=== PATIENT | female | born 1970 | race African-American/Black ===

== ENCOUNTER 2019-01-23 00:04 | Emergency (ER) | payer OTHER ==
[~2019-01-23] VITALS: Ht 162.6 cm; Wt 99.8 kg
[2019-01-23] MEDS ORDERED: BACITRACIN ZINC 0.9GM TP ONE ×2 (00:20→00:30)
[2019-01-23] MEDS ORDERED: IBUPROFEN 200 MG TAB PO STA (00:27)
[2019-01-23] MEDS ORDERED: ACETAMINOPHEN 325 MG TAB PO ONE (00:30)
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
== END 2019-01-23 01:32 | disposition home or self-care (01) ==
LOC: ER 00:04
DX: M54.2 Cervicalgia (principal); S16.1XXA Strain of muscle, fascia and tendon at neck level, initial encounter; S00.31XA Abrasion of nose, initial encounter; V43.52XA Car driver injured in collision with other type car in traffic accident, initial encounter; Y92.488 Other paved roadways as the place of occurrence of the external cause
CPT/HCPCS: 70486; 72125; 99283

== ENCOUNTER 2019-05-16 14:24 | Emergency (ER) | payer OTHER ==
[~2019-05-16] VITALS: Ht 162.6 cm; Wt 99.8 kg
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
[2019-05-16] MEDS ORDERED: SODIUM CHLORIDE 0.9% 1000ML 1,000 ML IV STA (14:36)
[2019-05-16] MEDS ORDERED: ONDANSETRON HCL INJ 2MG/ML 2ML 2 MG/ML VIAL IV ONE (14:36)
[2019-05-16] MEDS ORDERED: PANTOPRAZOLE 40 MG 10ML VIAL IV ONE (14:36)
[2019-05-16 15:47] LABS: EOSINOPHILS # (AUTO) 0.1 (0.0-0.4); EOSINOPHILS % 1.7 % (0.0-6.0); HEMOGLOBIN 8.1 g/dL (12.0-16.0); LYMPHOCYTES # (AUTO) 0.7 (1.0-3.2); LYMPHOCYTES % 9.8 % (18.0-39.1); MEAN CORPUSCULAR HEMOGLOBIN 18.4 pg (28-32); MEAN CORPUSCULAR HGB CONC 28.9 g/dL (31-35); MEAN CORPUSCULAR VOLUME 63.5 fL (81-99); MONOCYTES # (AUTO) 0.6 (0.2-0.8); MONOCYTES % 9.6 % (4.4-11.3); NEUTROPHILS # (AUTO) 5.2 (2.1-6.9); NEUTROPHILS % 78.6 % (38.7-80.0); PLATELET COUNT 353 x10e3/uL (140-360); RED BLOOD COUNT 4.41 x10e6/uL (3.6-5.1); RED CELL DISTRIBUTION WIDTH 19.5 % (11.7-14.4)
[2019-05-16 15:49] LABS: BILIRUBIN,URINE NEGATIVE (NEGATIVE); CLARITY,URINE SL CLOUDY (CLEAR); KETONES,URINE NEGATIVE (NEGATIVE); LEUKOCYTE ESTERASE ,URINE NEGATIVE (NEGATIVE); NITRITE,URINE NEGATIVE (NEGATIVE); PROTEIN,URINE DIPSTICK TRACE (NEGATIVE); URINE UROBILINOGEN 2 mg/dL (0.2 - 1)
--- NOTE | 2019-05-16 15:50 | NUR ---
PATIENT TO ROOM 9
[2019-05-16 15:52] LABS: COLOR,URINE STRAW (YELLOW); PREGNANCY TEST, URINE NEGATIVE (NEGATIVE)
[2019-05-16 16:01] LABS: AMORPHOUS SEDIMENT,URINE MODERATE (FEW); BACTERIA,URINE MANY /HPF; EPITHELIAL CELLS,URINE MANY /LPF; MUCUS,URINE MODERATE (RARE)
[2019-05-16 16:04] LABS: ANION GAP 13.9 mmol/L (8-16); BLOOD UREA NITROGEN 5 mg/dL (7-26); BUN/CREATININE RATIO 7 (6-25); CALCIUM 9.8 mg/dL (8.4-10.2); CARBON DIOXIDE 22 mmol/L (22-29); CHLORIDE 105 mmol/L (98-107); CREATINE KINASE 60 IU/L (29-168); CREATININE, SERUM 0.68 mg/dL (0.57-1.11); EST GLOMERULAR FILTRATION RATE > 60 ML/MIN (60-); GLUCOSE 94 mg/dL (74-118); LIPASE 32 U/L (8-78); POTASSIUM 3.9 mmol/L (3.5-5.1); SODIUM 137 mmol/L (136-145)
--- NOTE | 2019-05-16 16:58 | Diagnostic Imaging Report ---
EXAM: Abdomen 1 Views INDICATION: Stomach pain. Flank pain. Stomach pain before bowel movement. Left flank pain for months. COMPARISON: None FINDINGS: LAP-BAND in place. Right quadrant cholecystectomy clips. Surgical clips in the left pelvis. No significant amount of stool in the colon. No dilated loops of small bowel. 0.4 cm calcific density at the left L2 level, approximately in the left renal pelvis. 0.2 cm radiodensity at the left L3 level. Significant pelvic phleboliths. No abnormal soft tissue masses. No significant degenerative changes in the lumbar spine and pelvis. IMPRESSION: 1. Possible 0.4 cm left renal stone. 2. 0.2 cm radiodensity in the left L3 level, possibly an ureteral stone versus phleboliths. Signed by: Dr. Reji Santiago M.D. on 05/16/2019 4:55 PM
--- NOTE | 2019-05-16 17:17 | NUR ---
DR. YI AT BEDSIDE, UPDATING PATIENT ON HER STATUS AND ANSWERING QUESTIONS
[2019-05-16] MEDS ORDERED: FERROUS SULFAT324 MG PO (17:22)
[2019-05-16] MEDS ORDERED: COLACE100 MG PO (17:22)
== END 2019-05-16 17:55 | disposition home or self-care (01) ==
LOC: ER 14:24
DX: R42 Dizziness and giddiness (principal); R53.1 Weakness; R55 Syncope and collapse; D50.0 Iron deficiency anemia secondary to blood loss (chronic)
CPT/HCPCS: 36415; 74018; 80048; 81001; 81025; 82550; 82553; 83690; 84484; 85025; 99284; C9113; J2405; J7030